=== PATIENT | male | born 1990 | race Caucasian/White ===

== ENCOUNTER 2023-10-18 09:05 | Emergency (ER) | payer OTHER ==
[~2023-10-18] VITALS: Ht 172.7 cm; Wt 78.6 kg
[2023-10-18 09:12] VITALS: TEMP 98.4
[2023-10-18] MEDS ORDERED: NS 1,000 ML IV ONE (09:15)
[2023-10-18] MEDS ORDERED: Ondansetron 4 MG/2 ML VIAL IV ONE (09:15)
[2023-10-18 09:41] LABS: BASO % 0.4 % (0.0-2.0); EOS # 0.4 K/mm3 (0.0-0.7); GRAN # 3.9 K/mm3 (1.4-6.5); HEMATOCRIT 42.3 % (42.0-52.0); LYMPH # 2.1 K/mm3 (1.2-3.4); LYMPH % 28.8 % (20.0-51.0); MEAN CELL VOLUME 91 fl (80.0-100.0); MEAN CORPUSCULAR HEMOGLOBIN 30 pg (27-31); MEAN CORPUSCULAR HGB CONC 33 g/dl (33.0-37.0); MEAN PLATELET VOLUME 10.2 fl (7.4-10.4); MONO # 0.8 K/mm3 (0.1-0.6); MONO % 10.7 % (1.7-9.3); PLATELET COUNT 205 K/mm3 (130-400); RED BLOOD COUNT 4.64 M/mm3 (4.20-5.60); REDCELL DISTRIBUTION WIDTH-CV 13.3 % (11.5-14.5)
[2023-10-18 10:17] LABS: ALBUMIN 4.1 g/dL (3.5-5.0); BILIRUBIN,TOTAL 0.4 mg/dL (0.2-1.2); CALCIUM 9.4 mg/dL (8.4-10.2); CREATININE, serum 0.82 mg/dL (0.72-1.25); POTASSIUM 4.1 mEq/L (3.5-4.5); TOTAL PROTEIN 7.2 g/dl (6.2-8.1)
[2023-10-18 10:45] LABS: C-REACTIVE PROTEIN 0.18 mg/dL (0.00-0.50)
[2023-10-18 13:10] LABS: URINE APPEARANCE CLEAR (CLEAR/HAZY); URINE BLOOD NEGATIVE (NEGATIVE); URINE COLOR YELLOW (YELLOW); URINE GLUCOSE NEGATIVE (NEGATIVE); URINE KETONE NEGATIVE (NEGATIVE); URINE NITRATE NEGATIVE (NEGATIVE); URINE PROTEIN(semi-quant) NEGATIVE (NEGATIVE); URINE UROBILINOGEN 0.2 E.U/dL (0.2-1.0)
[2023-10-18 14:02] LABS: COLLECTION METHOD CLEAN CATCH
[2023-10-18 14:07] VITALS: BP 115/76; PULSE 72
== END 2023-10-18 14:07 | disposition home or self-care (01) ==
LOC: COL.ER 09:05
PROVIDERS: Emergency Medicine
DX: R10.32 Left lower quadrant pain (principal)
CPT/HCPCS: J2405; J7030